=== PATIENT | male | born 1980 | race Caucasian/White ===

== ENCOUNTER → 2017-06-07 12:14 | Outpatient (CLI) | payer BC ==
[2014-07-08 09:14] VITALS: BMI 29.3
[~2017-06-07 12:14] MED LIST: ADIPEX-P37.5 MG PO; NEXIUM40 MG PO
== END | disposition home or self-care (01) ==
LOC: D.NM 12:14
DX: K82.9 Disease of gallbladder, unspecified (principal)

== ENCOUNTER 2018-09-11 06:47 | Day surgery (SDC) | payer BC ==
--- NOTE | 2018-09-07 18:17 | HP ---
PATIENT: DIETER ARMENDARIZ MEDICAL RECORD: [id number] ACCOUNT: [id number] LOCATION:[facility] : 76 ADMISSION DATE: 09/11/18 PCP: HISTORY AND PHYSICAL EXAMINATION HISTORY: Dieter is 37 years old. He previously had a nasal injury with displaced nasal septum, nasal obstruction, and has recurrent uvula edema associated with snoring. He is being admitted for septoplasty and uvulectomy. PAST MEDICAL HISTORY: Reflux. PAST SURGICAL HISTORY: Carpal tunnel, nasal reconstruction in 2013, and LASIK surgery in 2005. CURRENT MEDICATIONS: Nexium. ALLERGIES: No known drug allergies. PHYSICAL EXAMINATION: GENERAL: He is healthy appearing. FACE: Normal and symmetric. No lesions. EYES: Sclerae and conjunctivae are normal. EARS: Canals and TMs are normal. NOSE: The septum is fractured off the maxillary spine and mobile in the left side of the nose with left septal deviation. ORAL CAVITY AND OROPHARYNX: He has a thick long uvula. NECK: No masses. No adenopathy. CHEST: Clear. CARDIOVASCULAR: Regular rate and rhythm. No murmur. IMPRESSION: Nasal obstruction, septal deviation, and recurrent uvula edema. PLAN: Septoplasty and uvulectomy. TRANSINT:[id number] Voice Confirmation ID: [id number] DOCUMENT ID: [id number] NEERAJ NATHAN MD at 1817 CC: [id number] DICTATION DATE: 09/07/18 1544 CHANGE BOOTH ATTENDANT: 09/07/18 1708 [facility] [address] [place] [address]
[~2018-09-11] VITALS: Ht 180.3 cm; Wt 113.4 kg
[2018-09-11] MEDS ORDERED: OMEPRAZOLE40 MG PO (08:04)
[2018-09-11 08:10] VITALS: BP 115/79; Ht 180.3 cm; Wt 113.4 kg
--- NOTE | 2018-09-11 12:35 | NUR ---
ANESTHESIA CONSULTED TO SUSTAINED 02 SAT OF 89-91% ON 15L SIMPLE MASK UPDRAFT GIVEN AT THIS TIME
--- NOTE | 2018-09-11 14:34 | NUR ---
DC INSTRUCTIONS GIVEN TO PT/ENDERY. STATE UNDERSTANDING. DC'D IV CATH FULLY INTACT. PT LEFT UNIT VIA WC AT 1434
--- NOTE | 2018-09-18 09:35 | OP ---
PATIENT NAME: KERMIT ARMENDARIZ MEDICAL RECORD: [id number] :76 LOCATION:[facility] ADMISSION DATE: SURGEON: NEERAJ NATHAN MD DATE OF OPERATION: 09/11/2018 PREOPERATIVE DIAGNOSES: Septal deviation, nasal obstruction, and recurrent uvula edema. POSTOPERATIVE DIAGNOSES: Septal deviation, nasal obstruction, and recurrent uvula edema. PROCEDURES: Septoplasty and uvulectomy. SURGEON: Neeraj Nathan MD ANESTHESIA: General orotracheal. BLOOD LOSS: Less than 5 cc. SPECIMENS: Uvula. COMPLICATIONS: None. NASAL PACKING: Mujica splints bilaterally. DISPOSITION: Recovery, stable. DESCRIPTION OF PROCEDURE: He was brought to the operating room, placed in the supine position, and sedated and intubated by anesthesia. The nose was decongested with Afrin preoperatively. Both sides of the nose were examined using headlight and nasal speculum. The septum, floor of the nose, and inferior turbinates were injected with a total of 1.5 cc of 1% lidocaine with 1:100,000 epinephrine. Two Afrin pledgets were placed in each side of the nose. He was prepped and draped in usual sterile fashion. All the Afrin pledgets were removed. The nose was examined. Right side looked pretty good. He had fractured the septum off of the maxillary spine, was in the left side of the nose, obstructing the left side. Left-sided Arma incision was made. Ipsilateral mucoperichondrial flap was elevated. The tip of the caudal septum was dissected out. The septum was already from the maxillary spine. It was pushed over into the right nostril. The maxillary spine was taken down slightly with a chisel and some relaxing incisions were made in the septal cartilage. This allowed the septum to lay in the midline. The Brooks incision was closed with interrupted 4-0 chromic and the nose was suctioned with a #9 suction bilaterally. Good open airway and symmetric nostrils after that. Mujica splints were placed and sutured through the anterior membranous septum with 2-0 Prolene on a Irving needle. Table was turned 90 degrees. Head drapes were applied. He was positioned for uvulectomy. Using a headlight, a Chase-Sabino mouth gag was carefully inserted and elevated on a towel on his chest. The palate was examined and palpated. It was normal, but he had a very thick uvula. The base of the uvula was injected with about 0.5 cc of 1% lidocaine with 1:100,000 epinephrine. The tip of the uvula was grasped with an Allis clamp. It looked like there was a papilloma on the posterior aspect of that. Spatula tip cautery on a setting of 9 was used to divide the mucosa anteriorly and posteriorly, preserving all the palate and just taking the uvula including the lesion on the posterior uvula. This was taken down through the muscular layer. OPERATIVE REPORT [id number] KERMIT ARMENDARIZ Cautery was used to stop any bleeding and then the wound was closed with interrupted 4-0 Vicryl and that closed nicely. There was no bleeding. The pharynx was suctioned. With the field clean and dry, the Chase-Sabino mouth gag was let down and removed. He was awakened, extubated, and transported to recovery in good condition. No complications. TRANSINT:[id number] Voice Confirmation ID: [id number] DOCUMENT ID: [id number] NEERAJ NATHAN MD at 0935 CC: [id number] DICTATION DATE: 09/11/18 1214 PROBATE JUDGE: 09/11/18 1821 [facility] 09/11/18 [facility] [address] [place] [address]
== END 2018-09-11 14:34 | disposition home or self-care (01) ==
LOC: D.OPS 06:47
DX: J34.2 Deviated nasal septum (principal); J34.89 Other specified disorders of nose and nasal sinuses; K13.79 Other lesions of oral mucosa; K21.9 Gastro-esophageal reflux disease without esophagitis; Z79.899 Other long term (current) drug therapy; Z01.812 Encounter for preprocedural laboratory examination

== ENCOUNTER 2019-03-24 14:24 | Emergency (ER) | payer BC ==
[~2019-03-24] VITALS: Ht 180.3 cm; Wt 102.3 kg
[~2019-03-24 14:24] MED LIST changes: +OMEPRAZOLE40 MG PO
[2019-03-24 14:30] VITALS: Ht 180.3 cm; Wt 102.3 kg
[2019-03-24 15:52] VITALS: BP 139/86
== END 2019-03-24 15:53 ==
LOC: D.ER 14:24
DX: F10.129 Alcohol abuse with intoxication, unspecified (principal)

== ENCOUNTER → 2019-06-28 08:50 | Outpatient (CLI) | payer BC ==
[2019-03-24 14:30] VITALS: BMI 31.4
[2019-06-28 10:14] LABS: ALBUMIN 3.9 g/dL (3.4-5.0); BILIRUBIN - DIRECT 0.1 mg/dL (0.00-0.30); BILIRUBIN - INDIRECT 0.28 mg/dL (0.00-1.00); BILIRUBIN - TOTAL 0.38 mg/dL (0.2-1.3); PROTEIN - SERUM 7.5 g/dL (6.4-8.2)
== END | disposition home or self-care (01) ==
LOC: D.LAB 08:50 → D.US 09:30
PROVIDERS: ATTEND Internal Medicine Gastroenterology
DX: K22.70 Barrett's esophagus without dysplasia (principal); R11.2 Nausea with vomiting, unspecified; R10.11 Right upper quadrant pain; R10.12 Left upper quadrant pain